=== PATIENT | female | born 1940 | race Caucasian/White ===

== ENCOUNTER 2018-12-26 10:28 | Day surgery (SDC) | payer MEDICARE, BC ==
[~2018-12-26 10:28] MED LIST: Lactated Ringers 1,000 ML IV SCH; Lidocaine 1% 6 ML ONE; Lidocaine 1%/Sod Bicarbonate in NS 8.4% 1 ML Syringe IDERM PRN; Propofol 200 MG/20 ML SDV ONE; Sodium Chloride 0.9% 10 ML Syringe FLUSH PRN; fentaNYL 100 MCG/2 ML SDV ONE
--- NOTE | 2018-12-26 11:03 | PCM.PREANE ---
Preanesthetic Assessment - Procedure Proposed Procedure: screening colonoscopy - Anesthesia/Transfusion/Family Hx Anesthesia History: Prior Anesthesia Without Reaction Family History of Anesthesia Reaction: No Transfusion History: No Prior Transfusion(s) - Review of Systems General: No Symptoms Pulmonary: No Symptoms Cardiovascular: No Symptoms Gastrointestinal: No Symptoms Neurological: No Symptoms Other: Reports: None - Physical Assessment NPO Status Date: 12/26/18 NPO Status Time: 05:30 (finished prep 3 cups) Pulse: 77 O2 Sat by Pulse Oximetry: 96 Respiratory Rate: 17 Blood Pressure: 124/71 Temperature: 98.3 F Height: 5 ft 3 in Weight: 65.3 kg ASA Class: 2 Mental Status: Alert & Oriented x3 Airway Class: Mallampati = 1 Dentition: Reports: Partial (upper) Thyro-Mental Finger Breadths: 3 Mouth Opening Finger Breadths: 3 ROM/Head Extension: Full Lungs: Clear to Auscultation, Normal Respiratory Effort Cardiovascular: Regular Rate, Regular Rhythm - Allergies Allergies/Adverse Reactions: Allergies Allergy/AdvReac Type Severity Reaction Status Date / Time valsartan [From Diovan] Allergy Dizziness Verified 12/25/18 14:49 - Blood Blood Available: No - Acknowledgements Anesthesia Type Planned: MAC Pt an Appropriate Candidate for the Planned Anesthesia: Yes Alternatives and Risks of Anesthesia Discussed w Pt/Guardian: Yes Pt/Guardian Understands and Agrees with Anesthesia Plan: Yes PreAnesthesia Questionnaire HEENT History: Reports: Impaired Vision, Other (See Below) Other HEENT History: middle ear effusion, tonsillectomy, wears glasses, has partial Cardiovascular History: Reports: Hypertension Respiratory History: Reports: Other (See Below) Other Respiratory History: Sarcoidosis, respiratory infection, cough Genitourinary History: Reports: Other (See Below) Other Genitourinary History: bladder surgery 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: Musculoskeletal History: Reports: Arthritis, RA Neurological History: Reports: Other (See Below) Other Neuro History: dizziness denies Psychiatric History: Reports: None Endocrine/Metabolic History: Reports: None Hematologic History: Reports: Other (See Below) Other Hematologic History: JULIENNE-2 gene mutation, thrombocytosis, thrombocytopenia Immunologic History: Reports: None Oncologic (Cancer) History: Reports: None Dermatologic History: Reports: None - Past Surgical History Head Surgeries/Procedures: Reports: None HEENT Surgical History: Reports: Tonsillectomy Cardiovascular Surgical History: Reports: None Respiratory Surgical History: Reports: Other (See Below) Other Respiratory Surgeries/Procedures: Mediastinoscopy GI Surgical History: Reports: Appendectomy, Colonoscopy Female Surgical History: Reports: Hysterectomy, Oophorectomy, Other (See Below) Other Female Surgeries/Procedures: Bladder uphold Endocrine Surgical History: Reports: None Neurological Surgical History: Reports: None Musculoskeletal Surgical History: Reports: None Oncologic Surgical History: Reports: None Dermatological Surgical History: Reports: None - SUBSTANCE USE Smoking Status *Q: Never Smoker Tobacco Use Within Last Twelve Months: No Second Hand Smoke Exposure: No Days Per Week of Alcohol Use: 1 (rare) Number of Drinks Per Day: 1 Total Drinks Per Week: 1 Recreational Drug Use History: No - HOME MEDS Home Medications: Home Meds Aspirin [Halfprin] 81 mg PO DAILY 03/21/16 [History] Furosemide 20 mg PO Q2D PRN 03/21/16 [History] Hydroxychloroquine [Plaquenil] 200 mg PO BID 03/21/16 [History] Losartan [Cozaar] 50 mg PO DAILY 03/21/16 [History] [place]-3 Fatty Acids [Fish Oil] 1,000 mg PO BID 03/21/16 [History] Potassium Chloride [Klor-Con M20] 10 meq PO DAILY 03/21/16 [History] Hydroxyurea [Hydrea] 1,000 mg PO DAILY 12/25/18 [History] - CURRENT (IN HOUSE) MEDS Current Meds: Current Medications Lactated Ringer's (Ringers, Lactated) 1,000 mls @ 125 mls/hr IV ASDIRECTED STEVE Stop: 12/26/18 23:00 Lidocaine/Sodium Bicarbonate (Buffered Lidocaine 1% In Ns 8.4%) 0.25 ml IDERM ONETIME PRN PRN Reason: Prior to IV Start Stop: 12/26/18 18:00 Sodium Chloride (Saline Flush) 10 ml FLUSH ASDIRECTED PRN PRN Reason: Keep Vein Open Stop: 12/26/18 18:00 Discontinued Medications Fentanyl (Sublimaze) Confirm Administered Dose 100 mcg .ROUTE .STK-MED ONE Stop: 12/26/18 07:11 Lidocaine HCl (Xylocaine-Mpf 1%) Confirm Administered Dose 6 mls @ as directed .ROUTE .STK-MED ONE Stop: 12/26/18 07:10 Propofol (Diprivan 20 Ml) Confirm Administered Dose 200 mg .ROUTE .[facility] ONE Stop: 12/26/18 07:10
--- NOTE | 2018-12-26 11:44 | PCM48HPAN ---
Post Anesthesia Note - EVALUATION WITHIN 48HRS OF ANESTHETIC Vital Signs in Normal Range: Yes Patient Participated in Evaluation: Yes Respiratory Function Stable: Yes Airway Patent: Yes Cardiovascular Function Stable: Yes Hydration Status Stable: Yes Pain Control Satisfactory: Yes Nausea and Vomiting Control Satisfactory: Yes Mental Status Recovered: Yes
--- NOTE | 2018-12-26 12:17 | OR ---
DATE OF OPERATION: 12/26/2018 SURGEON: Ajit Watson MD PREOPERATIVE DIAGNOSIS: Screening colonoscopy. POSTOPERATIVE DIAGNOSIS: Screening colonoscopy. OPERATION PERFORMED: Total colonoscopy. ANESTHESIA: MAC. SPECIMEN: None. OPERATIVE FINDINGS: Significant sigmoid diverticulosis, otherwise normal. RECOMMENDATION: Followup colonoscopy for symptoms only. INDICATION FOR PROCEDURE: This 78-year-old female presents for screening colonoscopy. DESCRIPTION OF PROCEDURE: After adequate preparation, a colonoscope was inserted into the rectum. This was somewhat difficult to pass through the sigmoid area secondary to extensive diverticulosis. She also seems to have a fixed coil in the sigmoid area. The scope was advanced all the way to the cecum. Confirmation of the cecum was made by visualization of the ileocecal valve and palpation in the right lower quadrant. The bowel prep was adequate. On withdrawal of the scope, no polyps were noted. The only significant abnormality was the above-mentioned diverticulosis. Anal and rectal exam was also normal. Air was suctioned from the colon and the scope removed. ESTIMATED BLOOD LOSS: MMODAL /[id number]
[2018-12-26 13:09] VITALS: BP 124/66
== END 2018-12-26 12:20 | disposition home or self-care (01) ==
LOC: JD.SDS 10:28
PROVIDERS: ATTEND Surgery
DX: Z12.11 Encounter for screening for malignant neoplasm of colon (principal); K57.30 Diverticulosis of large intestine without perforation or abscess without bleeding; D64.9 Anemia, unspecified; I10 Essential (primary) hypertension; M41.9 Scoliosis, unspecified; M06.9 Rheumatoid arthritis, unspecified; Z88.8 Allergy status to other drugs, medicaments and biological substances; Z80.0 Family history of malignant neoplasm of digestive organs; Z79.82 Long term (current) use of aspirin; Z79.899 Other long term (current) drug therapy
CPT/HCPCS: G0105; J2001; J2704; J3010; J7120; 00812

== ENCOUNTER 2020-11-02 15:02 | Emergency (ER) | payer MEDICARE, BC ==
--- NOTE | 2020-11-02 15:30 | EDM.PDOC ---
ED HPI GENERAL MEDICAL PROBLEM - General Chief Complaint: Upper Extremity Injury/Pain Stated Complaint: FALL/ R ARM PAIN Time Seen by Provider: 11/02/20 15:09 Source of Information: Reports: Patient History Limitations: Reports: No Limitations, Other (ER vital signs temp 96.1, pulse 59, respiratory rate 20, blood pressure 108/48, pulse ox 97% on room air) - History of Present Illness INITIAL COMMENTS - FREE TEXT/NARRATIVE: 80-year-old female presents to the emergency department with complaints of right shoulder/humerus pain. Patient states she was sitting at home playing cards when she got up and caught her foot on a rug. She states she then tripped fell forward hitting her forehead on the couch and her shoulder hit to the arm of the couch. Patient states she did not get knocked out. She reports that she is unable to raise her arm laterally. She does have positive CMS to her right digits and pulse is palpable. This event happened just prior to arrival. Onset: Today, Sudden Right Upper Arm Pain Score (Numeric/FACES): 9 - Related Data Allergies Allergy/AdvReac Type Severity Reaction Status Date / Time valsartan [From Diovan] Allergy Severe Dizziness Verified 11/02/20 15:12 Home Meds: Home Meds Aspirin [Halfprin] 81 mg PO DAILY 03/21/16 [History] Furosemide 20 mg PO Q2D PRN 03/21/16 [History] Hydroxychloroquine [Plaquenil] 200 mg PO BID 03/21/16 [History] Losartan [Cozaar] 50 mg PO DAILY 03/21/16 [History] [place]-3 Fatty Acids [Fish Oil] 1,000 mg PO BID 03/21/16 [History] Potassium Chloride [Klor-Con M20] 10 meq PO DAILY 03/21/16 [History] Hydroxyurea [Hydrea] 1,000 mg PO DAILY 12/25/18 [History] Cholecalciferol (Vitamin D3) [Vitamin D3] 25 mcg PO DAILY 11/02/20 [History] Past Medical History HEENT History: Reports: Impaired Vision, Other (See Below) Other HEENT History: middle ear effusion, tonsillectomy, wears glasses, has partial Cardiovascular History: Reports: Hypertension Respiratory History: Reports: Other (See Below) Other Respiratory History: Sarcoidosis, respiratory infection, cough Genitourinary History: Reports: Other (See Below) Other Genitourinary History: 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: Musculoskeletal History: Reports: Arthritis, RA Neurological History: Reports: Other (See Below) Other Neuro History: dizziness denies Psychiatric History: Reports: None Endocrine/Metabolic History: Reports: None Hematologic History: Reports: Other (See Below) Other Hematologic History: JULIENNE-2 gene mutation, thrombocytosis, thrombocytopenia Immunologic History: Reports: None Oncologic (Cancer) History: Reports: None Dermatologic History: Reports: None - Past Surgical History Head Surgeries/Procedures: Reports: None HEENT Surgical History: Reports: Tonsillectomy Cardiovascular Surgical History: Reports: None Respiratory Surgical History: Reports: Other (See Below) Other Respiratory Surgeries/Procedures: Mediastinoscopy GI Surgical History: Reports: Appendectomy, Colonoscopy Female Surgical History: Reports: Hysterectomy, Oophorectomy, Other (See Below) Other Female Surgeries/Procedures: Bladder uphold Endocrine Surgical History: Reports: None Neurological Surgical History: Reports: None Musculoskeletal Surgical History: Reports: None Oncologic Surgical History: Reports: None Dermatological Surgical History: Reports: None Social & Family History - Family History Cardiac: Reports: High Cholesterol, Hypertension, [place] Neurological: Reports: CVA - Tobacco Use Tobacco Use Status *Q: Never Tobacco User - Caffeine Use Caffeine Use: Reports: Coffee, Tea - Recreational Drug Use Recreational Drug Use: No Review of Systems - Review of Systems Review Of Systems: See Below Constitutional: Reports: No Symptoms Eyes: Reports: No Symptoms, Glasses Ears: Reports: No Symptoms Nose: Reports: No Symptoms Mouth/Throat: Reports: No Symptoms Respiratory: Reports: No Symptoms Cardiovascular: Reports: No Symptoms GI/Abdominal: Reports: No Symptoms Genitourinary: Reports: No Symptoms Musculoskeletal: Reports: Shoulder Pain (Right), Arm Pain (Right) Skin: Reports: No Symptoms Neurological: Reports: No Symptoms. Denies: Headache Psychiatric: Reports: No Symptoms ED EXAM, GENERAL - Physical Exam Exam: See Below Exam Limited By: No Limitations General Appearance: Alert, WD/WN, No Apparent Distress Eye Exam: Bilateral Eye: PERRL Ears: Normal External Exam, Hearing Grossly Normal Nose: Normal Inspection, No Blood Throat/Mouth: Normal Voice, No Airway Compromise Head: Atraumatic, Normocephalic Neck: Normal Inspection, Supple, Non-Tender, Full Range of Motion Respiratory/Chest: No Respiratory Distress, Lungs Clear, Normal Breath Sounds, No Accessory Muscle Use, Chest Non-Tender Cardiovascular: Normal Peripheral Pulses, Regular Rate, Rhythm, No Edema, No Murmur Peripheral Pulses: 2+: Radial (L), Radial (R), Dorsalis Pedis (L), Dorsalis Pedis (R) GI/Abdominal: Normal Bowel Sounds, Soft, Non-Tender, No Distention (Female) Exam: Deferred Rectal (Female) Exam: Deferred Back Exam: Normal Inspection, Full Range of Motion Extremities: No Pedal Edema, Normal Capillary Refill, Arm Pain (Denies pain with palpation however patient is unable to raise her right arm laterally or frontal; is able to bend her arm at the elbow and wiggle her fingers.), Limited Range of Motion (Right arm), Other (Right shoulder appears dislocated). No: Normal Range of Motion, Pedal Edema Neurological: Alert, Oriented, Normal Cognition Psychiatric: Normal Affect, Normal Mood Skin Exam: Warm, Dry, Intact, Normal Color, No Rash Lymphatic: No Adenopathy ED TRAUMA EXTREMITY PROCEDURES - Joint Reduction Right Shoulder Sedation: Conscious Sedation, Other (with Propofol 40mg- Dr Antonio administered) Pre-Procedure NV Status: Normal Post-Procedure NV Status: Normal Technique: Traction/Counter Traction Number of Attempts: 1 Post-Reduction Imaging: Completely Reduced, No Fracture Seen Joint Reduction Complications: No Progress/Comments: immobilizer sling and swath ordered to be placed post procedure. Course - Vital Signs Text/Narrative:: I have ordered a right humerus xray and a complete shoulder xray. Last Recorded V/S: Last Vital Signs Temp 96.1 F L 11/02/20 15:08 Pulse 68 11/02/20 16:20 Resp 14 11/02/20 16:20 BP 137/67 11/02/20 16:20 Pulse Ox 100 11/02/20 16:20 - Orders/Labs/Meds Orders: Active Orders 24 hr Category Date Time Status Shoulder 1V Rt [CR] Stat Exams 11/02/20 16:27 Ordered Lactated Ringers [Ringers, Lactated] 1,000 ml Med 11/02/20 16:00 Active IV ASDIRECTED DME for Discharge [COMM] Routine Oth 11/02/20 15:58 Ordered Medication Orders Lactated Ringer's (Ringers, Lactated) 1,000 mls @ 25 mls/hr IV ASDIRECTED STEVE Last Admin: 11/02/20 16:20 Dose: 25 mls/hr Documented by: BRENDON Wus: Medications Generic Name Dose Route Start Last Admin Trade Name Freq PRN Reason Stop Dose Admin Lactated Ringer's 1,000 mls @ 25 mls/hr 11/02/20 16:00 11/02/20 16:20 Ringers, Lactated IV 25 mls/hr ASDIRECTED STEVE Administration Discontinued Medications Generic Name Dose Route Start Last Admin Trade Name Freq PRN Reason Stop Dose Admin Oxycodone/Acetaminophen 1 tab 11/02/20 15:35 11/02/20 15:48 Percocet 325-5 Mg PO 11/02/20 15:36 1 tab ONETIME ONE Administration Propofol 150 mg 11/02/20 15:53 11/02/20 16:23 Diprivan 20 Ml IVPUSH 11/02/20 15:54 40 mg ONETIME ONE Administration - Radiology Interpretation Free Text/Narrative:: Right shoulder 3 views of the right shoulder impression per radiologist: 1. Anterior dislocated glenohumeral joint. Right humerus x-ray radiologist report: 1. Anterior dislocated right humerus. 2 no other acute bony abnormality seen. 3. Atelectasis. Departure - Departure Time of Disposition: 17:15 Disposition: Home, Self-Care 01 Condition: Good Clinical Impression: Closed dislocation of right glenohumeral joint Qualifiers: Encounter type: initial encounter Qualified Code(s): S43.084A - Other dislocation of right shoulder joint, initial encounter - Discharge Information Instructions: How To Use a Sling, [id number], Shoulder Dislocation, [id number] Referrals: Chioma Steele, HUMAN SERVICES ASSISTANT [Primary Care Provider] - Forms: ED Department Discharge Additional Instructions: You was seen in the emergency department for complaints Of right shoulder pain after falling at home. X-ray revealed that your right shoulder was dislocated. You were given sedation and your shoulder dislocation was reduced. An x-ray was taken after the procedure, and your shoulder is back in place. You will need to wear the sling and swath until follow-up with Dr. Raphael. Please schedule an appointment with him early next week. Please ice your right shoulder 20 minutes on 3 times daily. You can take Tylenol 650 mg every 4 hours as needed for pain or ibuprofen 600 mg every 8 hours as needed for pain. Return to the emergency department with any problems. Sepsis Event Note (ED) - Evaluation Sepsis Screening Result: No Definite Risk - Focused Exam Vital Signs: Vital Signs Temp Pulse Resp BP Pulse Ox 11/02/20 16:20 68 14 137/67 100 11/02/20 15:08 96.1 F L 59 L 20 108/48 L 97 - My Orders Last 24 Hours: My Active Orders 11/02/20 15:58 DME for Discharge [COMM] Routine 11/02/20 16:00 Lactated Ringers [Ringers, Lactated] 1,000 ml IV ASDIRECTED 11/02/20 16:27 Shoulder 1V Rt [CR] Stat - Assessment/Plan Last 24 Hours: My Active Orders 11/02/20 15:58 DME for Discharge [COMM] Routine 11/02/20 16:00 Lactated Ringers [Ringers, Lactated] 1,000 ml IV ASDIRECTED 11/02/20 16:27 Shoulder 1V Rt [CR] Stat
[2020-11-02] MEDS ORDERED: Acetaminophen/oxyCODONE 325-5 MG Tab PO ONE (15:35)
[2020-11-02] MEDS ORDERED: Propofol 200 MG/20 ML SDV IVPUSH ONE (15:53)
--- NOTE | 2020-11-02 15:59 | CR ---
Right humerus: AP view of the right humerus was obtained. Findings: Anterior dislocation is seen. No acute fracture or other bony abnormality is appreciated. Atelectasis is seen within the right lung base. Impression: 1. Anterior dislocated right humerus. 2. No other acute bony abnormality seen. 3. Atelectasis. Diagnostic code #3
--- NOTE | 2020-11-02 15:59 | CR ---
Right shoulder: 3 views of the right shoulder were obtained. Comparison: No previous shoulder study is available. Anterior subcoracoid dislocation is seen within the glenohumeral joint. Joint space narrowing is seen within the acromioclavicular joint. Slight atelectasis is seen within the right lung base. No additional abnormality is appreciated. Impression: 1. Anterior dislocated glenohumeral joint. 2. Other findings believed to be incidental as noted above. Diagnostic code #3
[2020-11-02] MEDS ORDERED: Lactated Ringers 1,000 ML IV SCH (16:00)
[2020-11-02 17:28] VITALS: BP 112/63; PULSE 71
--- NOTE | 2020-11-03 08:59 | CR ---
Right shoulder: Single portable view of the right shoulder was obtained. Comparison: Prior right humerus and right shoulder study performed earlier on the same day. Previous dislocation within the glenohumeral joint appears to have been reduced. Slight atelectasis within the right lung base is minimally improved. No definite fracture is appreciated. Impression: 1. Previous dislocation has been reduced within the right glenohumeral joint. 2. Minimally improved atelectasis within the right lung base. Diagnostic code #2
== END 2020-11-02 17:50 | disposition home or self-care (01) ==
LOC: JD.ED 15:02
DX: S43.014A Anterior dislocation of right humerus, initial encounter (principal); I10 Essential (primary) hypertension; M06.9 Rheumatoid arthritis, unspecified; Z88.8 Allergy status to other drugs, medicaments and biological substances; Z79.82 Long term (current) use of aspirin; Z79.899 Other long term (current) drug therapy; W01.10XA Fall on same level from slipping, tripping and stumbling with subsequent striking against unspecified object, initial encounter
CPT/HCPCS: 23650; 73020; 73030; 73060; 99152; 99283; A9270; J2704; J7120

== ENCOUNTER 2024-05-21 08:05 | Emergency (ER) | payer MEDICARE, BC ==
[2024-05-21] MEDS: Sodium Chloride 0.9% 500 ML IV ONE (08:42)
[2024-05-21] MEDS: Sodium Chloride 0.9% 10 ML Syringe FLUSH PRN (08:42)
[2024-05-21 09:16] LABS: BASOPHILS ABSOLUTE AUTO 0.4 K/mm3 (0.0-0.2); BASOPHILS PERCENT AUTO 3.3 % (0.0-1.0); EOSINOPHILS ABSOLUTE AUTO 0.1 K/mm3 (0.0-0.4); EOSINOPHILS PERCENT AUTO 1.2 % (0.0-6.0); HEMATOCRIT 30.1 % (37.0-47.0); HEMOGLOBIN 9.9 gm/dl (12.0-16.0); IMMATURE GRAN ABSOLUTE AUTO 0.15 K/mm3 (0.00-0.05); IMMATURE GRAN PERCENT AUTO 1.3 % (0.0-0.4); LYMPHOCYTES ABSOLUTE AUTO 0.8 K/mm3 (1.0-4.8); LYMPHOCYTES PERCENT AUTO 6.6 % (24.0-44.0); MEAN CORPUSCULAR HEMOGLOBIN 37.2 pg (28.0-32.0); MEAN CORPUSCULAR HGB CONC 32.9 g/dl (32.0-36.0); MEAN CORPUSCULAR VOLUME 113.2 fl (83.0-99.0); MEAN PLATELET VOLUME 10.8 fl (9.4-12.3); MONOCYTES ABSOLUTE AUTO 1.6 K/mm3 (0.0-0.8); MONOCYTES PERCENT AUTO 14.5 % (0.0-8.0); NEUTROPHILS ABSOLUTE AUTO 8.2 K/mm3 (1.8-7.7); NEUTROPHILS PERCENT AUTO 73.1 % (41.0-71.0); NRBC ABSOLUTE 0.03 (0.00-0.02); NRBC PERCENT 0.3 % (0.0-0.2); RED BLOOD CELL COUNT 2.66 M/mm3 (4.10-5.30); WHITE BLOOD CELL COUNT,WBC 11.29 K/mm3 (3.9-11.3)
[2024-05-21 09:34] LABS: PLATELET COUNT,PLT 863 K/mm3 (150-400)
[2024-05-21 09:38] LABS: ALBUMIN 2.9 g/dl (3.4-5.0); ANION GAP 12.4 (5-15); BILIRUBIN TOTAL 0.7 mg/dL (0.2-1.0); CALCIUM 8.5 mg/dL (8.5-10.1); CREATININE 0.8 mg/dL (0.55-1.02); EST CRCL DRUG DOSING (CG) 44.08 mL/min; MAGNESIUM 1.9 mg/dL (1.8-2.4); POTASSIUM,K 4.4 mEq/L (3.5-5.1); PROTEIN TOTAL,TP 5.9 g/dl (6.4-8.2)
[2024-05-21 10:35] LABS: SLIDE REVIEW ABNORMAL SMEAR
[2024-05-21 11:30] LABS: APPEARANCE,URINE CLEAR (Clear); BILIRUBIN,URINE NEGATIVE (Negative); COLOR,URINE YELLOW (Yellow); GLUCOSE,URINE NEGATIVE (Negative); KETONES,URINE NEGATIVE (Negative); LEUKOCYTE ESTERASE,URINE NEGATIVE (Negative); NITRITE,URINE NEGATIVE (Negative); OCCULT BLOOD,URINE NEGATIVE (Negative); PROTEIN,URINE NEGATIVE (Negative); UROBILINOGEN,URINE 0.2 (0.2-1.0)
[2024-05-21 20:01] VITALS: BP 154/88; PULSE 66
== END 2024-05-21 13:24 | disposition home or self-care (01) ==
LOC: JD.ED 08:05
DX: R55 Syncope and collapse (principal); R42 Dizziness and giddiness; I10 Essential (primary) hypertension; Z87.19 Personal history of other diseases of the digestive system; Z88.8 Allergy status to other drugs, medicaments and biological substances; Z79.82 Long term (current) use of aspirin; Z79.899 Other long term (current) drug therapy; Z86.16 Personal history of COVID-19; Z90.710 Acquired absence of both cervix and uterus
CPT/HCPCS: 36415; 71045; 71045-26; 80053; 81003; 83735; 84484; 85025; 93005; 96360; 99285-25; J3490; J7030

== ENCOUNTER 2024-05-27 12:05 | Inpatient (IN) | payer MEDICARE, BC ==
[2024-05-27 13:23] LABS: BASOPHILS ABSOLUTE AUTO 0.1 K/mm3 (0.0-0.2); BASOPHILS PERCENT AUTO 2.1 % (0.0-1.0); EOSINOPHILS ABSOLUTE AUTO 0.2 K/mm3 (0.0-0.4); EOSINOPHILS PERCENT AUTO 2.5 % (0.0-6.0); HEMATOCRIT 32.1 % (37.0-47.0); HEMOGLOBIN 10.2 gm/dl (12.0-16.0); IMMATURE GRAN ABSOLUTE AUTO 0.08 K/mm3 (0.00-0.05); IMMATURE GRAN PERCENT AUTO 1.2 % (0.0-0.4); LYMPHOCYTES ABSOLUTE AUTO 0.8 K/mm3 (1.0-4.8); LYMPHOCYTES PERCENT AUTO 12.9 % (24.0-44.0); MEAN CORPUSCULAR HEMOGLOBIN 36.2 pg (28.0-32.0); MEAN CORPUSCULAR HGB CONC 31.8 g/dl (32.0-36.0); MEAN CORPUSCULAR VOLUME 113.8 fl (83.0-99.0); MEAN PLATELET VOLUME 10.9 fl (9.4-12.3); MONOCYTES ABSOLUTE AUTO 1.1 K/mm3 (0.0-0.8); NEUTROPHILS ABSOLUTE AUTO 4.2 K/mm3 (1.8-7.7); NEUTROPHILS PERCENT AUTO 64.3 % (41.0-71.0); RED BLOOD CELL COUNT 2.82 M/mm3 (4.10-5.30); WHITE BLOOD CELL COUNT,WBC 6.53 K/mm3 (3.9-11.3)
[2024-05-27 13:39] LABS: PLATELET COUNT,PLT 629 K/mm3 (150-400)
[2024-05-27 14:07] LABS: A/G RATIO 0.8 (1-2); ALBUMIN 2.9 g/dl (3.4-5.0); ANION GAP 12.6 (5-15); BILIRUBIN TOTAL 0.6 mg/dL (0.2-1.0); BUN/CREATININE RATIO 33.8 (14-18); C-REACTIVE PROTEIN 2.99 mg/dL (<0.30); CALCIUM 9.4 mg/dL (8.5-10.1); CREATININE 0.8 mg/dL (0.55-1.02); EST CRCL DRUG DOSING (CG) 42.14 mL/min; POTASSIUM,K 4.6 mEq/L (3.5-5.1); PROTEIN TOTAL,TP 6.6 g/dl (6.4-8.2)
[2024-05-27 14:15] LABS: LACTIC ACID 0.5 mmol/L (0.4-2.0)
[2024-05-27] MEDS ORDERED: Polyethylene Glycol 3350 Powder 17 GM Packet PO PRN (16:01)
[2024-05-27] MEDS ORDERED: Docusate Sodium 100 MG Cap PO PRN (16:01)
[2024-05-27] MEDS ORDERED: Ondansetron 4 MG/2 ML SDV IV PRN (16:01)
[2024-05-27] MEDS: Heparin Sodium 5,000 Units/ML Vial SUBCUT SCH (17:16)
[2024-05-27] MEDS: Cefepime 2 GM in Sodium Chloride 0.9% 50 ML IV SCH (17:16)
[2024-05-27] MEDS: Acetaminophen 325 MG Tab PO SCH (21:29)
[2024-05-28 04:39] LABS: BASOPHILS ABSOLUTE AUTO 0.2 K/mm3 (0.0-0.2); BASOPHILS PERCENT AUTO 2.7 % (0.0-1.0); EOSINOPHILS ABSOLUTE AUTO 0.2 K/mm3 (0.0-0.4); EOSINOPHILS PERCENT AUTO 3.6 % (0.0-6.0); HEMATOCRIT 30.9 % (37.0-47.0); HEMOGLOBIN 10.1 gm/dl (12.0-16.0); IMMATURE GRAN ABSOLUTE AUTO 0.08 K/mm3 (0.00-0.05); IMMATURE GRAN PERCENT AUTO 1.4 % (0.0-0.4); LYMPHOCYTES ABSOLUTE AUTO 0.9 K/mm3 (1.0-4.8); LYMPHOCYTES PERCENT AUTO 15.6 % (24.0-44.0); MEAN CORPUSCULAR HEMOGLOBIN 36.3 pg (28.0-32.0); MEAN CORPUSCULAR HGB CONC 32.7 g/dl (32.0-36.0); MEAN CORPUSCULAR VOLUME 111.2 fl (83.0-99.0); MEAN PLATELET VOLUME 11.1 fl (9.4-12.3); MONOCYTES ABSOLUTE AUTO 0.7 K/mm3 (0.0-0.8); MONOCYTES PERCENT AUTO 11.9 % (0.0-8.0); NEUTROPHILS ABSOLUTE AUTO 3.8 K/mm3 (1.8-7.7); NEUTROPHILS PERCENT AUTO 64.8 % (41.0-71.0); PLATELET COUNT,PLT 564 K/mm3 (150-400); RED BLOOD CELL COUNT 2.78 M/mm3 (4.10-5.30); WHITE BLOOD CELL COUNT,WBC 5.88 K/mm3 (3.9-11.3)
[2024-05-28 05:06] LABS: A/G RATIO 0.8 (1-2); ALBUMIN 2.7 g/dl (3.4-5.0); ANION GAP 14.3 (5-15); BILIRUBIN TOTAL 0.7 mg/dL (0.2-1.0); BUN/CREATININE RATIO 32.5 (14-18); C-REACTIVE PROTEIN 2.73 mg/dL (<0.30); CALCIUM 8.9 mg/dL (8.5-10.1); CREATININE 0.8 mg/dL (0.55-1.02); EST CRCL DRUG DOSING (CG) 44.08 mL/min; MAGNESIUM 1.7 mg/dL (1.8-2.4); POTASSIUM,K 4.3 mEq/L (3.5-5.1); PROTEIN TOTAL,TP 6.2 g/dl (6.4-8.2)
[2024-05-28 06:45] LABS: SLIDE REVIEW ABNORMAL SMEAR
[2024-05-28] MEDS: Aspirin 81 MG Tab.EC PO SCH (08:10)
[2024-05-28] MEDS: Losartan 25 MG Tab PO SCH (08:10)
[2024-05-28] MEDS ORDERED: Losartan 50 MG Tab PO SCH (09:00)
[2024-05-28] MEDS: Cefepime 2 GM in Sodium Chloride 0.9% 50 ML IV SCH (11:06)
[2024-05-28] MEDS: Acetaminophen 325 MG Tab PO PRN (18:09)
[2024-05-29 04:54] LABS: BASOPHILS ABSOLUTE AUTO 0.2 K/mm3 (0.0-0.2); BASOPHILS PERCENT AUTO 2.7 % (0.0-1.0); EOSINOPHILS ABSOLUTE AUTO 0.1 K/mm3 (0.0-0.4); EOSINOPHILS PERCENT AUTO 2.2 % (0.0-6.0); HEMATOCRIT 32.7 % (37.0-47.0); HEMOGLOBIN 10.6 gm/dl (12.0-16.0); IMMATURE GRAN PERCENT AUTO 1.6 % (0.0-0.4); LYMPHOCYTES ABSOLUTE AUTO 0.9 K/mm3 (1.0-4.8); LYMPHOCYTES PERCENT AUTO 14.6 % (24.0-44.0); MEAN CORPUSCULAR HEMOGLOBIN 35.8 pg (28.0-32.0); MEAN CORPUSCULAR HGB CONC 32.4 g/dl (32.0-36.0); MEAN CORPUSCULAR VOLUME 110.5 fl (83.0-99.0); MEAN PLATELET VOLUME 11.3 fl (9.4-12.3); MONOCYTES ABSOLUTE AUTO 0.8 K/mm3 (0.0-0.8); MONOCYTES PERCENT AUTO 13.1 % (0.0-8.0); NEUTROPHILS ABSOLUTE AUTO 4.1 K/mm3 (1.8-7.7); NEUTROPHILS PERCENT AUTO 65.8 % (41.0-71.0); NRBC ABSOLUTE 0.02 (0.00-0.02); NRBC PERCENT 0.3 % (0.0-0.2); PLATELET COUNT,PLT 633 K/mm3 (150-400); RED BLOOD CELL COUNT 2.96 M/mm3 (4.10-5.30); WHITE BLOOD CELL COUNT,WBC 6.25 K/mm3 (3.9-11.3)
[2024-05-29 05:26] LABS: A/G RATIO 0.8 (1-2); ALBUMIN 2.7 g/dl (3.4-5.0); ANION GAP 14.8 (5-15); BILIRUBIN TOTAL 0.6 mg/dL (0.2-1.0); C-REACTIVE PROTEIN 3.49 mg/dL (<0.30); CALCIUM 9.3 mg/dL (8.5-10.1); EST CRCL DRUG DOSING (CG) 35.26 mL/min; MAGNESIUM 1.8 mg/dL (1.8-2.4); POTASSIUM,K 4.8 mEq/L (3.5-5.1); PROTEIN TOTAL,TP 6.2 g/dl (6.4-8.2)
[2024-05-29] MEDS: Ondansetron 4 MG Tab.DIS PO PRN (07:24)
[2024-05-29 13:36] VITALS: BP 112/49; PULSE 71
[2024-05-29] MEDS ORDERED: Sulfamethoxazole/Trimethoprim 800-160 MG Tab PO SCH (21:00)
== END 2024-05-29 12:45 | disposition home or self-care (01) | DRG 603 ==
LOC: JD.ED 12:05 → JD.MS 14:47 → UNDOADMIN 16:08 → JD.MS 16:08 → UNDODISIN 05-29 12:45
PROVIDERS: ADMIT Family Medicine; ATTEND Family Medicine
PROC: 0HDMXZZ Extraction of Right Foot Skin, External Approach (ICD-10-PCS; principal; 2024-05-28)
DX: L03.115 Cellulitis of right lower limb (principal); D84.9 Immunodeficiency, unspecified; L97.311 Non-pressure chronic ulcer of right ankle limited to breakdown of skin; D46.9 Myelodysplastic syndrome, unspecified; M19.90 Unspecified osteoarthritis, unspecified site; I83.018 Varicose veins of right lower extremity with ulcer other part of lower leg; E78.00 Pure hypercholesterolemia, unspecified; I25.2 Old myocardial infarction; R55 Syncope and collapse; I10 Essential (primary) hypertension; Z86.16 Personal history of COVID-19; Z79.82 Long term (current) use of aspirin; Z90.49 Acquired absence of other specified parts of digestive tract; Z90.710 Acquired absence of both cervix and uterus; Z90.89 Acquired absence of other organs; Z79.899 Other long term (current) drug therapy; Z88.8 Allergy status to other drugs, medicaments and biological substances
CPT/HCPCS: 36415; 80053; 80202; 83605; 83735; 85025; 86140; 87070; 87075; 87077; 87186; 87205; 87641; 99284; 99285; A9270-GY; J0692; J1644; J3370; J3490; J7050

== ENCOUNTER 2024-07-09 16:28 | Inpatient (IN) | payer MEDICARE, BC ==
[2024-07-09] MEDS ORDERED: Sodium Chloride 0.9% 10 ML Syringe FLUSH PRN (17:39)
[2024-07-09 18:12] LABS: HEMATOCRIT 28.9 % (37.0-47.0); HEMOGLOBIN 9.3 gm/dl (12.0-16.0); MEAN CORPUSCULAR HGB CONC 32.2 g/dl (32.0-36.0); MEAN PLATELET VOLUME 11.6 fl (9.4-12.3); NRBC ABSOLUTE 0.17 (0.00-0.02); PLATELET COUNT,PLT 342 K/mm3 (150-400); RED BLOOD CELL COUNT 2.45 M/mm3 (4.10-5.30); WHITE BLOOD CELL COUNT,WBC 8.68 K/mm3 (3.9-11.3)
[2024-07-09] MEDS: Piperacillin/Tazobactam 4.5 GM in Sodium Chloride 0.9% 100 ML IV STA (18:16)
[2024-07-09 18:30] LABS: INR 0.97; PROTHROMBIN TIME 10.3 SECONDS (9.7-12.0)
[2024-07-09 18:33] LABS: A/G RATIO 0.9 (1-2); ALBUMIN 3.1 g/dl (3.4-5.0); ANION GAP 12.5 (5-15); BILIRUBIN TOTAL 0.8 mg/dL (0.2-1.0); C-REACTIVE PROTEIN 3.38 mg/dL (<0.30); CALCIUM 9.3 mg/dL (8.5-10.1); EST CRCL DRUG DOSING (CG) 35.26 mL/min; POTASSIUM,K 4.5 mEq/L (3.5-5.1); PROTEIN TOTAL,TP 6.6 g/dl (6.4-8.2)
[2024-07-09 18:38] LABS: LACTIC ACID 0.4 mmol/L (0.4-2.0)
[2024-07-09 18:53] LABS: BAND PERCENT MAN 1 % (0-10); BASOPHILS PERCENT MAN 1 (0.1-1.2); EOSINOPHILS PERCENT MAN 2 % (0.7-5.8); LYMPHOCYTES % ATYPICAL MANUAL 0 %; LYMPHOCYTES PERCENT MAN 17 % (20-40); MONOCYTES PERCENT MAN 13 % (2-10)
[2024-07-09 18:54] LABS: ANISOCYTOSIS 2+ MODERATE; OVALOCYTES 1+ SLIGHT; POIKILOCYTOSIS 1+ SLIGHT; TEARDROP CELLS FEW
[2024-07-09 18:55] LABS: PLATELET COUNT ESTIMATE ADEQUATE
[2024-07-09] MEDS ORDERED: Morphine 2 MG/ML SYRINGE IVPUSH PRN (18:59)
[2024-07-09] MEDS ORDERED: Ondansetron 4 MG Tab.DIS PO PRN (18:59)
[2024-07-09] MEDS ORDERED: Naloxone 0.4 MG/ML SDV IVPUSH PRN (18:59)
[2024-07-09] MEDS ORDERED: oxyCODONE 5 MG Tab PO PRN (18:59)
[2024-07-09] MEDS: Piperacillin/Tazobactam 4.5 GM in Sodium Chloride 0.9% 100 ML IV SCH (22:30)
[2024-07-10] MEDS ORDERED: Piperacillin/Tazobactam 4.5 GM in Sodium Chloride 0.9% 100 ML IV SCH (01:40)
[2024-07-10 04:35] LABS: BASOPHILS ABSOLUTE AUTO 0.2 K/mm3 (0.0-0.2); BASOPHILS PERCENT AUTO 3.2 % (0.0-1.0); EOSINOPHILS ABSOLUTE AUTO 0.1 K/mm3 (0.0-0.4); EOSINOPHILS PERCENT AUTO 0.8 % (0.0-6.0); HEMATOCRIT 28.3 % (37.0-47.0); HEMOGLOBIN 9.2 gm/dl (12.0-16.0); IMMATURE GRAN ABSOLUTE AUTO 0.26 K/mm3 (0.00-0.05); IMMATURE GRAN PERCENT AUTO 3.4 % (0.0-0.4); LYMPHOCYTES ABSOLUTE AUTO 0.8 K/mm3 (1.0-4.8); LYMPHOCYTES PERCENT AUTO 10.6 % (24.0-44.0); MEAN CORPUSCULAR HEMOGLOBIN 38.3 pg (28.0-32.0); MEAN CORPUSCULAR HGB CONC 32.5 g/dl (32.0-36.0); MEAN CORPUSCULAR VOLUME 117.9 fl (83.0-99.0); MEAN PLATELET VOLUME 11.4 fl (9.4-12.3); MONOCYTES ABSOLUTE AUTO 1.5 K/mm3 (0.0-0.8); MONOCYTES PERCENT AUTO 20.1 % (0.0-8.0); NEUTROPHILS ABSOLUTE AUTO 4.7 K/mm3 (1.8-7.7); NEUTROPHILS PERCENT AUTO 61.9 % (41.0-71.0); NRBC ABSOLUTE 0.08 (0.00-0.02); NRBC PERCENT 1.1 % (0.0-0.2); PLATELET COUNT,PLT 326 K/mm3 (150-400); WHITE BLOOD CELL COUNT,WBC 7.55 K/mm3 (3.9-11.3)
[2024-07-10 05:00] LABS: ANION GAP 13.1 (5-15); C-REACTIVE PROTEIN 2.94 mg/dL (<0.30); CALCIUM 8.6 mg/dL (8.5-10.1); EST CRCL DRUG DOSING (CG) 35.26 mL/min; POTASSIUM,K 4.1 mEq/L (3.5-5.1)
[2024-07-10 06:12] LABS: SLIDE REVIEW ABNORMAL SMEAR
[2024-07-10] MEDS: Enoxaparin 40 MG/0.4 ML Syringe SUBCUT SCH (08:24)
[2024-07-10] MEDS: Acetaminophen 325 MG Tab PO PRN (08:24)
[2024-07-10] MEDS: Losartan 25 MG Tab PO SCH (08:24)
[2024-07-10] MEDS: Iopamidol 612 MG/ML 100 ML Bottle IVPUSH ONE (16:55)
[2024-07-11 05:32] LABS: BASOPHILS ABSOLUTE AUTO 0.4 K/mm3 (0.0-0.2); BASOPHILS PERCENT AUTO 3.7 % (0.0-1.0); EOSINOPHILS ABSOLUTE AUTO 0.1 K/mm3 (0.0-0.4); EOSINOPHILS PERCENT AUTO 0.8 % (0.0-6.0); HEMATOCRIT 27.8 % (37.0-47.0); HEMOGLOBIN 9.2 gm/dl (12.0-16.0); IMMATURE GRAN ABSOLUTE AUTO 0.42 K/mm3 (0.00-0.05); IMMATURE GRAN PERCENT AUTO 4.2 % (0.0-0.4); LYMPHOCYTES ABSOLUTE AUTO 0.9 K/mm3 (1.0-4.8); LYMPHOCYTES PERCENT AUTO 8.4 % (24.0-44.0); MEAN CORPUSCULAR HEMOGLOBIN 38.8 pg (28.0-32.0); MEAN CORPUSCULAR HGB CONC 33.1 g/dl (32.0-36.0); MEAN CORPUSCULAR VOLUME 117.3 fl (83.0-99.0); MEAN PLATELET VOLUME 11.4 fl (9.4-12.3); MONOCYTES ABSOLUTE AUTO 2.4 K/mm3 (0.0-0.8); MONOCYTES PERCENT AUTO 23.8 % (0.0-8.0); NEUTROPHILS PERCENT AUTO 59.1 % (41.0-71.0); NRBC ABSOLUTE 0.11 (0.00-0.02); NRBC PERCENT 1.1 % (0.0-0.2); PLATELET COUNT,PLT 384 K/mm3 (150-400); RED BLOOD CELL COUNT 2.37 M/mm3 (4.10-5.30); WHITE BLOOD CELL COUNT,WBC 10.07 K/mm3 (3.9-11.3)
[2024-07-11 05:49] LABS: BUN/CREATININE RATIO 16.7 (14-18); C-REACTIVE PROTEIN 2.11 mg/dL (<0.30); CALCIUM 8.8 mg/dL (8.5-10.1); CREATININE 1.2 mg/dL (0.55-1.02); EST CRCL DRUG DOSING (CG) 29.38 mL/min
[2024-07-11 06:16] LABS: SLIDE REVIEW ABNORMAL SMEAR
[2024-07-11 12:24] VITALS: BP 132/90; PULSE 73
== END 2024-07-11 12:25 | disposition home or self-care (01) | DRG 593 ==
LOC: JD.ED 16:28 → JD.MS 18:59
PROVIDERS: ADMIT Family Medicine; ATTEND Family Medicine
DX: L97.911 Non-pressure chronic ulcer of unspecified part of right lower leg limited to breakdown of skin (principal); D84.9 Immunodeficiency, unspecified; I83.018 Varicose veins of right lower extremity with ulcer other part of lower leg; I10 Essential (primary) hypertension; M06.9 Rheumatoid arthritis, unspecified; M19.90 Unspecified osteoarthritis, unspecified site; Z86.16 Personal history of COVID-19; H54.7 Unspecified visual loss; D53.9 Nutritional anemia, unspecified; Z90.49 Acquired absence of other specified parts of digestive tract; Z97.3 Presence of spectacles and contact lenses; D69.6 Thrombocytopenia, unspecified; Z90.710 Acquired absence of both cervix and uterus; Z90.89 Acquired absence of other organs; Z79.899 Other long term (current) drug therapy; Z79.82 Long term (current) use of aspirin; Z98.890 Other specified postprocedural states; Z90.721 Acquired absence of ovaries, unilateral; Z88.8 Allergy status to other drugs, medicaments and biological substances; D75.839 Thrombocytosis, unspecified; D46.9 Myelodysplastic syndrome, unspecified
CPT/HCPCS: 36415; 80053; 83605; 85007; 85027; 85610; 86140; 87040 ×2; 96365; 99284; J2543; J3490; 73701-26-RT; 73701-RT; 80048; 85025; 87070; 87075; 87205; 97161-GP; 99223; 99232; 99238; 99285; A9270-GY; J1650; Q9967